=== PATIENT | male | born 1970 | race Caucasian/White ===

== ENCOUNTER → 2016-07-04 | Outpatient (CLI) | payer MEDICAID | LOC: FCPNEURO 21:30 | PROVIDERS: ATTEND Psychiatry & Neurology Sleep Medicine | DX: G47.33 Obstructive sleep apnea (adult) (pediatric) (principal); G47.39 Other sleep apnea ==

== ENCOUNTER → 2016-08-13 | Outpatient (CLI) | payer MEDICAID | LOC: FCPNEURO 21:00 | PROVIDERS: ATTEND Psychiatry & Neurology Sleep Medicine | DX: G47.39 Other sleep apnea (principal); G47.33 Obstructive sleep apnea (adult) (pediatric) ==

== ENCOUNTER 2017-08-09 19:30 | Emergency (ER) | payer OTHER ==
[2017-08-09 19:35] VITALS: BP 152/99; PULSE 87; RESP 18; TEMP 97.5; O2SAT 95
[2017-08-09] MEDS ORDERED: HYDROCOD/APAP 5/325 PREPACK#6 BTL TAKEHOME ONE (19:53)
[2017-08-09] MEDS ORDERED: KETOROLAC 30 MG/1 ML SDV IM ONE (19:53)
[2017-08-09] MEDS ORDERED: DIAZEPAM 5 MG PREPACK#4 BTL TAKEHOME ONE (19:53)
--- NOTE | 2017-08-09 19:57 | EDPHY ---
H & P Time Seen by Provider: 08/09/17 19:37 HPI/ROS: CHIEF COMPLAINT: Right-sided groin pain radiating to leg HISTORY OF PRESENT ILLNESS: 47-year-old male presents with right-sided groin pain. 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 The pain is intermittent and severe at times. Today he developed recurrent severe pain approximately 2 hr ago. The pain started after he stood up. The pain radiates down his right leg and causes a burning sensation in his right leg. Similar to prior episodes of neuropathy. He sees Dr. Joy for pain management and the only alleviating factor is a nerve block. REVIEW OF SYSTEMS: Constitutional: No fever, no chills Eyes: No visual changes ENT: No sore throat Respiratory: No cough, no shortness of breath Cardiac: No chest pain Gastrointestinal: no vomiting, no abdominal pain Genitourinary: no dysuria Musculoskeletal: No leg pain or swelling Skin: No rash Neurological: No headache, no weakness Psychiatric: No depression Past Medical/Surgical History: Right inguinal herniorrhaphy Right inguinal neuropathy Smoking Status: Never smoked Physical Exam: General Appearance: Alert, appears in pain, standing with his hands over the back of a chair Eyes: Pupils equal and round, no conjunctival pallor ENT, Mouth: Mucous membranes moist Neck: Normal inspection Respiratory: Lungs are clear to auscultation Cardiovascular: Regular rate and rhythm Gastrointestinal: Abdomen is soft, tenderness in the right inguinal area Neurological: A&O, nonfocal, normal gait Skin: Warm and dry, no rash Extremities: Normal inspection, sensation intact to light touch Vascular: Pedal pulses 2+ Psychiatric: Mood and affect normal Constitutional: Initial Vital Signs Temperature (C) 36.4 C 08/09/17 19:32 Heart Rate 87 08/09/17 19:32 Respiratory Rate 18 08/09/17 19:32 Blood Pressure 152/99 H 08/09/17 19:32 O2 Sat (%) 95 08/09/17 19:32 O2 Delivery Mode Room Air Allergies/Adverse Reactions: gluten Allergy (Verified 08/09/17 19:35) lactose Allergy (Verified 08/09/17 19:35) oxycodone Allergy (Verified 08/09/17 19:35) Home Medications: Medication Instructions Recorded Diazepam [Valium 5 MG (*)] 5 mg PO Q6 PRN #10 tab 04/01/18 Hydrocodone/APAP 5/325 [[place] 1 - 2 tab PO Q4H PRN #10 tab 08/09/17 5/325] Medical Decision Making ED Course/Re-evaluation: This pt presents with severe right inquinal pain, with h/o similar. d/w Dr. Joy, will give pain meds tonight, f/u in the office this week. Toradol 60 mg IM given. Prescriptions for [place] and Valium. - Data Points Medications Given: Discontinued Medications Ketorolac Tromethamine (Toradol) 60 mg IM EDNOW ONE Stop: 08/09/17 19:54 Last Admin: 08/09/17 19:58 Dose: 60 mg Departure - Departure Disposition: Home, Routine, Self-Care Clinical Impression: Neuropathy, Severe right inguinal pain Condition: Good Instructions: Peripheral Neuropathy (ED) Additional Instructions: Ibuprofen 600 mg 3 times daily while the pain persists. Take Valium 1 tablet every 6 hr as needed for pain and muscle spasm Take Lortab 1-2 tab every 4 hr as needed for severe pain. Referrals: Sri Joy MD [Medical Doctor] - As per Instructions (Call tomorrow to make an appointment.) Prescriptions: Diazepam [Valium 5 MG (*)] 5 mg PO Q6 PRN #10 tab PRN Reason: muscle spasm Hydrocodone/APAP 5/325 [[place] 5/325] 1 - 2 tab PO Q4H PRN #10 tab PRN Reason: Pain, Moderate
== END 2017-08-09 20:11 | disposition home or self-care (01) ==
DX: R10.31 Right lower quadrant pain (principal); G62.9 Polyneuropathy, unspecified
CPT/HCPCS: J1885

== ENCOUNTER → 2018-07-23 | Outpatient (CLI) | payer MEDICAID | LOC: FIMAGING 15:33 | PROVIDERS: ATTEND Internal Medicine | DX: R07.81 Pleurodynia (principal); R04.2 Hemoptysis ==

== ENCOUNTER 2018-11-02 17:48 | Emergency (ER) | payer OTHER, MEDICAID | END 2018-11-02 20:12 | disposition home or self-care (01) ==